=== PATIENT | male | born 1995 | race Caucasian/White ===

== ENCOUNTER 2017-07-15 20:26 | Emergency (ER) | payer OTHER ==
[2017-07-15] MEDS: ONDANSETRON 4 MG ORAL DISINTEGRATING TAB (Q0162 PER 1MG) PO ×2 (22:27→23:33)
[2017-07-15] MEDS: dexameTHASONE 4 MG/ML 1ML VIAL (J1100) PO (22:27)
[2017-07-15] MEDS: AUGMENTIN 500 MG TAB PO (22:33)
[2017-07-15 23:05] LABS: INFLUENZA A AMPLIFICATION NEGATIVE (NEGATIVE); INFLUENZA B AMPLIFICATION NEGATIVE (NEGATIVE)
== END 2017-07-15 23:35 | disposition home or self-care (01) ==
LOC: M ED 20:26
DX: J02.0 Streptococcal pharyngitis (principal)
CPT/HCPCS: J1100

== ENCOUNTER 2017-07-20 16:14 | Emergency (ER) | payer OTHER ==
[2017-07-20] MEDS: NS 1,000 ML IV (16:45)
[2017-07-20] MEDS: KETOROLAC 30 MG/ML VIAL (J1885) IV (16:47)
[2017-07-20] MEDS: dexameTHASONE 20 MG/5 ML VIAL (J1100) IV (16:47)
[2017-07-20 16:57] LABS: HEMATOCRIT 46.6 % (42.0-52.0); HEMOGLOBIN 16.1 g/dl (13.5-17.5); MEAN CORPUSCULAR HEMOGLOBIN 29.4 pg (27.0-33.0); MEAN CORPUSCULAR HGB CONC 34.5 g/dl (32.0-36.5); PLATELET COUNT, AUTOMATED 198 10^3/uL (150-450); RED BLOOD COUNT 5.48 10^6/uL (4.30-6.10); RED CELL DISTRIBUTION WIDTH 12.4 % (11.5-14.5); WHITE BLOOD COUNT 9.7 10^3/uL (4.0-10.0)
[2017-07-20 17:05] LABS: ADD MANUAL DIFFER YES; DIFF SLIDE NUMBER 297; POSITIVE DIFF POS FLAG; POSITIVE MORPH POS FLAG
[2017-07-20 17:17] LABS: ALBUMIN/GLOBULIN RATIO 0.85 (1.00-1.93); ALKALINE PHOSPHATASE 75 U/L (45-117); ALT/SGPT 36 U/L (12-78); ANION GAP 3 MEQ/L (8-16); AST/SGOT 20 U/L (7-37); BILIRUBIN,DIRECT 0.2 MG/DL (0.0-0.2); BILIRUBIN,TOTAL 0.7 MG/DL (0.2-1.0); BLOOD UREA NITROGEN 12 MG/DL (7-18); C REACTIVE PROTEIN QUANTITATIV 2.63 MG/DL (0.00-0.30); CARBON DIOXIDE LEVEL 30 MEQ/L (21-32); CHLORIDE LEVEL 104 MEQ/L (98-107); CREATININE FOR GFR 0.95 MG/DL (0.70-1.30); GLUCOSE, FASTING 98 MG/DL (70-100); MAGNESIUM LEVEL 2.4 MG/DL (1.8-2.4); POTASSIUM SERUM 4.3 MEQ/L (3.5-5.1); SODIUM LEVEL 137 MEQ/L (136-145); TOTAL PROTEIN 8.7 GM/DL (6.4-8.2)
[2017-07-20 17:17] LABS: LACTIC ACID SEPSIS PROTOCOL 1.6 MMOL/L (0.4-2.0)
[2017-07-20] MEDS: MORPHINE 4 MG/ML 1ML VIAL/SYRINGE (J2270) IV (17:20)
[2017-07-20] MEDS: ONDANSETRON 4MG/2ML VIAL (J2405) IV (17:20)
[2017-07-20 17:37] LABS: ATYPICAL LYMPH 25 % (0-5); EOSINOPHILS 1 % (0-5); LYMPHOCYTES 31 % (16-52); MONOCYTES 2 % (0-8); NEUTROPHILS 41 % (35-75); PLATELET ESTIMATE NORMAL (NORMAL)
== END 2017-07-20 17:45 | disposition home or self-care (01) ==
LOC: M ED 16:14
DX: B27.00 Gammaherpesviral mononucleosis without complication (principal)
CPT/HCPCS: J2270